=== PATIENT | female | born 1965 | race Two or more races ===

== ENCOUNTER → 2019-04-24 | Emergency (ER) | payer OTHER ==
[~2019-04-24] VITALS: Ht 157.5 cm; Wt 74.8 kg
[~2019-04-24] MED LIST: SYNTHROID100 MCG; SYNTHROID100 MCG PO
== END | disposition home or self-care (01) ==
LOC: ER 15:06
DX: K57.92 Diverticulitis of intestine, part unspecified, without perforation or abscess without bleeding (principal); R10.2 Pelvic and perineal pain

== ENCOUNTER 2019-08-13 09:40 | Day surgery (SDC) | payer OTHER | END 2019-08-13 14:00 | disposition home or self-care (01) | LOC: AMB-ENDOS 09:40 | PROVIDERS: ATTEND Surgery | DX: D12.0 Benign neoplasm of cecum (principal); K57.30 Diverticulosis of large intestine without perforation or abscess without bleeding ==